=== PATIENT | male | born 1970 | race Caucasian/White ===

== ENCOUNTER 2016-12-20 18:07 | Emergency (ER) | payer SELFPAY ==
[~2016-12-20] VITALS: Ht 172.7 cm; Wt 107.1 kg
[2016-12-20 18:11] VITALS: BP 144/126
== END 2016-12-20 21:08 | disposition left against medical advice (07) ==
LOC: EME 18:07
DX: R11.2 Nausea with vomiting, unspecified (principal); Z53.21 Procedure and treatment not carried out due to patient leaving prior to being seen by health care provider